=== PATIENT | male | born 1935 | race Caucasian/White ===

== ENCOUNTER → 2016-10-24 | Outpatient (CLI) | payer MEDICARE, OTHER ==
[~2016-10-24] MED LIST: ACETAMINOPHEN650 M1 PO; ACTOS PO; DEMADEX PO; FISH OIL 1,0001 CAP; GLUCOVANCE 5/501 TA2 PO; IMDUR PO; JANUVIA50 MG PO; LIPITOR PO; LISINOPRIL PO; PLAVIX PO; TOPROL XL PO; ZETIA PO; ZYLOPRIM PO
== END | disposition home or self-care (01) ==
LOC: SLAB 11:14
DX: E11.9 Type 2 diabetes mellitus without complications (principal)
CPT/HCPCS: 36415; 83036

== ENCOUNTER → 2017-01-22 | Outpatient (CLI) | payer MEDICARE, OTHER | END | disposition home or self-care (01) | LOC: SLAB 11:00 | DX: E11.9 Type 2 diabetes mellitus without complications (principal); N18.3 Chronic kidney disease, stage 3 (moderate); Z79.4 Long term (current) use of insulin | CPT/HCPCS: 36415; 83036 ==